=== PATIENT | male | born 1995 | race Two or more races ===

== ENCOUNTER 2024-03-16 12:18 | Emergency (ER) | payer MEDICAID ==
[~2024-03-16] VITALS: Ht 165.1 cm; Wt 72.6 kg
[2024-03-16] MEDS ORDERED: LIDOCAINE 1%-EPI 1:100,000 20 ML VIAL ONE (12:38)
[2024-03-16] MEDS: LIDOCAINE 1%-EPI 1:100,000 20 ML VIAL TP ONE (12:39)
[2024-03-16] MEDS ORDERED: CEPH-570 PO (13:04)
[2024-03-16 13:19] VITALS: BP 118/61; TEMP 98.5; O2SAT 99
== END 2024-03-16 13:20 | disposition home or self-care (01) ==
LOC: ER 12:23
DX: S61.412A Laceration without foreign body of left hand, initial encounter (principal); W26.0XXA Contact with knife, initial encounter; Y93.89 Activity, other specified; Y92.89 Other specified places as the place of occurrence of the external cause; Y99.8 Other external cause status
CPT/HCPCS: 12001; 99283; A6403; J3490